=== PATIENT | male | born 1970 | race Caucasian/White ===

== ENCOUNTER 2020-08-18 08:34 | Outpatient (REF) | payer BC, SELFPAY ==
[2020-08-18 11:57] LABS: Alanine Aminotransferase 27 U/L (0-40); Anion Gap 13 (12-20); Aspartate Amino Transferase 22 U/L (5-37); Blood Urea Nitrogen 17 mg/dL (9-16); Calcium 9.3 mg/dL (8.4-10.2); Carbon Dioxide 29 mmol/L (22-29); Chloride 103 mmol/L (96-108); Cholesterol 221 mg/dL; Estimated Glomerular Filt Rate > 60; Glucose Fasting 99 mg/dL (60-99); HDL Cholesterol 46 mg/dL; LDL Cholesterol Calculated 140 mg/dl; Potassium 4.2 mmol/L (3.3-5.1); Sodium 141 mmol/L (135-145); Triglycerides 175 mg/dL
[2020-08-18 12:06] LABS: TSH reflex Free T4 1.11 uIU/mL (0.32-4.0)
== END 2020-08-18 08:35 | disposition home or self-care (01) ==
LOC: HO.HMGCLDS 08:34
PROVIDERS: PCP Internal Medicine; Visit Provider Internal Medicine
DX: Z00.01 Encounter for general adult medical examination with abnormal findings (principal); I10 Essential (primary) hypertension
CPT/HCPCS: 36415; 80048; 80061; 84443; 84450; 84460

== ENCOUNTER → 2020-09-15 10:42 | Outpatient (BNVA) | payer BC, SELFPAY | PROVIDERS: PCP Internal Medicine; Referring Provider Internal Medicine; Visit Provider Internal Medicine | DX: I10 Essential (primary) hypertension (principal); R94.31 Abnormal electrocardiogram [ECG] [EKG] | CPT/HCPCS: 93005 ==

== ENCOUNTER → 2020-09-29 10:06 | Outpatient (REF) | payer BC, SELFPAY ==
--- NOTE | 2020-09-29 | CA_ITS ---
Acquisition Time: 2020-09-29 10:20:27 Total Exercise Time: 00:09:00 Test Indications: Palpitations Medications: AMLODIPINE METOPROLOL Protocol: MIGUEL Max HR: 153 BPM 88% of Pred: 173 BPM Max BP: 220/100 mmHG Max Work Load: 10.1 METS Exercise stress test with exercise 9 min of Miguel protocol, without anginal symptoms, without arrythmia, with BP 146/86 at baseline and elevated to 220/100 with exercise, with nondiagnostic EKG for ischemia due to baseline abnormality. Nuclear images pending. Test reviewed with Dr Snowden. Referred By: Adryan Fuentes Overread By: LUBNA LOCK
--- NOTE | ~2020-09-29 | NM_ITS ---
Exercise Myocardial perfusion study Indication: Abnormal EKG to evaluate for myocardial ischemia Technique: The patient was brought in for an exercise perfusion study on 09/29/2020. Patient performed exercise as per Ibrahima protocol and was injected 30 mCi of sestamibi was given intravenously one target HR was achieved. Images were obtained using the SPECT gamma camera interlaced with the gating device. Images were obtained in supine position. Resting perfusion study was performed on 09/30/2020. Patient was administered 30 mCi of sestamibi intravenously at rest. Images were then obtained in supine position. Images obtained with and without CT attenuation. Total DLP 90 mGy-cm. Images were processed with the software and compared side to side in short axis, horizontal long axis and vertical long axis views. Findings: The stress perfusion study showed non attenuated images show mildly to moderately reduced uptake in the basal inferior wall of the LV myocardium. Remainder of the LV myocardium is normally perfused. Attenuation corrected images show mildly reduced uptake in the apex of the LV myocardium.. The gated study shows normal LV systolic function with calculated LVEF of 69%. LV cavity is normal in size. The gated study shows normal systolic wall thickening and contraction of all segments. There is no transient ischemic dilation. Resting study shows no change in perfusion pattern compared to stress perfusion study. Gating at rest reveals normal systolic wall motion with ejection fraction at 61%. The findings are consistent with normal myocardial perfusion. NM/NM cardiolite stress test Impression: 1. Normal myocardial perfusion 2. Gated LVEF is 69% 3. Transient ischemic dilatation not present Stress EKG is nondiagnostic for ischemia
--- NOTE | 2020-09-29 10:30 | ECG_ITS ---
Hook-up date: 2020-09-29 11:17:00 Duration: 24:23:00 Test Indications: Abnormal EKG Medications: [id number] QRS complexes 1 Ventricular ectopics which represent <1 % of total QRS comp. 15 Supraventricular ectopics which represent <1 % of total QRS comp. * Paced QRS complexs which represent % of total QRS comp. VENTRICULAR ECTOPY 1 Isolated 0 Bigeminal Cycles 0 Couplets 0 Runs 0 Beats in Runs * Beats LONGEST at * BPM at :: -- * Beats FASTEST at * BPM at :: -- SUPRAVENTRICULAR ECTOPY 15 Isolated 0 Couplets 0 Runs 0 Beats in Runs * Beats LONGEST at * BPM at :: -- * Beats FASTEST at * BPM at :: -- HEART RATES 55 MIN at 04:10:58 2020-09-30 82 AVG 124 MAX at 13:35:29 2020-09-29 LONGEST RR 1.1360 secs at 04:11:23 2020-09-30 S-T LEVELS Channel 1 - 128 mm at 11:17:00 2020-09-29 - 128 mm at 11:17:00 2020-09-29 Channel 2 - 128 mm at 11:17:00 2020-09-29 - 128 mm at 11:17:00 2020-09-29 Channel 3 - 128 mm at 03:03:61 -- - 128 mm at 03:03:61 Underlying rhythm is sinus with an average rate of 82/min; Range 55-124/min; Very rare PACs; No significant arrhythmias; Patient did not return diary Referred By: Artie Obrien Overread By: ARTIE OBRIEN
== END ==
LOC: HO.CARD 10:06
PROVIDERS: PCP Internal Medicine; Visit Provider Internal Medicine
DX: R94.31 Abnormal electrocardiogram [ECG] [EKG] (principal); I10 Essential (primary) hypertension
CPT/HCPCS: 78452; 93016; 93017; 93018; 93225; 93226; A9500

== ENCOUNTER → 2020-11-08 08:37 | Outpatient (REF) | payer BC, SELFPAY ==
--- NOTE | 2020-11-08 08:41 | CA_ITS ---
Transthoracic Echocardiogram Patient (Last, First, Middle): Uli Valencia, Gender: Male Date of : 1970 Age: 50 Procedure Date: 11/08/2020 Procedure Type: Transthoracic Echocardiogram Location: OP Height: 182.88 cm Weight: 81.65 kg BSA: 2.04 m2 Heart Rate: bpm BP: 140 / 90 mmHg Correspondent: DSJai Referring MD: Adryan Fuentes MD Symptoms: I10 - Essential (primary) hypertension Study Quality: Good ECG Rhythm: Sinus Conclusions: - The left ventricular systolic function is normal. The visually estimated ejection fraction is between 65-70%. - There is mildly increased left ventricular wall thickness. - No obvious valvular pathology seen on this study. - There is mild dilatation of the ascending aorta measuring 3.60 cm. Findings Left Ventricle Normal left ventricular cavity size. There is mildly increased left ventricular wall thickness. The left ventricular systolic function is normal. The visually estimated ejection fraction is between 65-70%. There is no evidence of regional wall motion abnormalities. Diastolic function is normal for age. Right Ventricle Normal right ventricular cavity size and systolic function. Atria Both atria are normal in size. Aortic Valve There is a normal trileaflet aortic valve. There is no aortic valve stenosis. There is no aortic valve regurgitation. Mitral Valve The mitral valve appears normal. There is trace mitral valve regurgitation. There is no mitral valve stenosis. Pulmonic Valve The pulmonic valve was not well visualized. Tricuspid Valve Normal tricuspid valve structure. There is no tricuspid valve regurgitation. The pulmonary artery systolic pressure is normal. Great Vessels There is mild dilatation of the ascending aorta measuring 3.60 cm. Venous The inferior vena cava is normal in size and collapses greater than 50% with inspiration. Pericardium/Pleural There is no evidence of pericardial effusion. Prior Study Comparison Changes noted compared to prior study dated: 08/23/2016. Increase in ascending aortic size. Recommendations, Care & Conclusions No obvious valvular pathology seen on this study. Measurements 2D Linear Measurements IVSd: 1.09 0.6-0.9/0.6-1.0 cm LVIDd: 4.53 3.9-5.3/4.2-5.9 cm LVIDd Index: 2.22 2.4-3.2/2.2-3.1 cm/m2 LVIDs: 3.20 2.0-3.6 cm LVPWd: 1.18 0.7-1.1 cm Ao Root: 3.20 2.1-3.5 cm LA Diam: 3.50 2.7-3.8/3.0-4.0 cm LAIDs Index: 1.72 1.5-2.3 cm/m2 LV Mass: 230.33 67-162/88-224 g LV Mass Index: 112.91 43-95/49-115 g/m2 LVOT Diam: 2.30 3.0+(-)1.3 cm 2D Systolic Function EF 4C: 73.30 >55% EF 2C: 63.20 >55% EF BiP: 69.40 >55% Mitral Valve MV Pk E: 0.58 MV PK A: 0.42 MV Decel Time: 152.00 E/A: 1.40 E'Lateral: 10.90 E'Medial: 7.40 E/E' Med: 7.80 E/E' Lat: 5.30 PHT: 44.00 MVA PHT: 5.00 Decel [place]: 3.79 Aortic Valve AoV Pk Scar: 1.21 AoV Pk Grad: 6.00 LVOT LVOT Pk Scar: 1.21 LVOT Mn Scar: 0.82 LVOT VTI: 0.24 LVOT Pk Grad: 6.00 LVOT Mn Grad: 3.00 LVOT Diam: 2.30 LVOT Area: 4.15 Diastolic Function MV Pk E: 0.58 MV Pk A: 0.42 E/A: 1.40 E'Medial: 7.40 E/E' Med: 7.80 E' Laterial: 10.90 E/E' Lat: 5.30 Tricuspid Valve RA Press: 3.00 Great Vessels Aorta Ao Root-2D: 3.20 2.0-3.7 cm Ao Asc: 3.60 2.1-3.4 cm Updated in Other Vendor System with Status of Final Adryan Fuentes MD electronically signed on 11/08/2020 10:41:54 AM with status of Final
== END ==
LOC: HO.CARD 08:37
PROVIDERS: Visit Provider Internal Medicine
DX: I10 Essential (primary) hypertension (principal)
CPT/HCPCS: 93306

== ENCOUNTER → 2020-12-07 09:28 | Outpatient (BNVA) | payer BC, SELFPAY | PROVIDERS: PCP Internal Medicine; Referring Provider Internal Medicine; Visit Provider Internal Medicine ==

== ENCOUNTER 2021-04-13 09:29 | Outpatient (REF) | payer BC, SELFPAY ==
[2021-04-13 10:53] LABS: Anion Gap 13 (12-20); Blood Urea Nitrogen 17 mg/dL (9-16); Calcium 9.5 mg/dL (8.4-10.2); Carbon Dioxide 26 mmol/L (22-29); Chloride 102 mmol/L (96-108); Estimated Glomerular Filt Rate > 60; Glucose Random 122 mg/dL (60-115); Potassium 4.3 mmol/L (3.3-5.1); Sodium 137 mmol/L (135-145)
[2021-04-13 11:39] LABS: Erythrocyte Sedimentation Rate 2 MM/HR (0-15)
[2021-04-13 11:40] LABS: Vitamin B12 338 pg/mL (200-900)
[2021-04-14 07:34] LABS: Syphilis Screen Nonreactive (Nonreactive)
[2021-04-15 04:57] LABS: Lyme Abs Screen <0.90 index
[2021-04-17 11:12] LABS: Anti Nuclear Antibody Screen NEGATIVE (NEGATIVE)
== END 2021-04-13 09:30 | disposition home or self-care (01) ==
LOC: HO.LAB 09:29
PROVIDERS: PCP Internal Medicine; Visit Provider Psychiatry & Neurology Neurology
DX: G93.40 Encephalopathy, unspecified (principal)
CPT/HCPCS: 36415; 80048; 82607; 85652; 86038; 86039; 86617; 86618; 86780

== ENCOUNTER 2021-04-18 08:05 | Outpatient (REF) | payer BC, SELFPAY ==
--- NOTE | ~2021-04-18 | MR_ITS ---
MR BRAIN WITHOUT AND WITH CONTRAST CLINICAL INFORMATION: Encephalopathy. Diplopia. COMPARISON: Brain MRI 11/28/2006. TECHNIQUE: Multiplanar, multisequence MRI of the brain was obtained before and after the intravenous administration of 8.5 mL Gadavist. FINDINGS: There is no pathologic intracranial enhancement. Mild nonspecific T2 signal changes within the supratentorial white matter. There is no hydrocephalus, extra-axial surface collection, or herniation. The major flow voids at the skull base are preserved. There is no acute infarct on diffusion-weighted imaging. There is no intracranial hemorrhage on the gradient recalled echo acquisition. The midline structures are normal. The cerebellar tonsils are normally positioned. The cerebellum and brainstem are normal. The craniocervical junction is normal. Osseous marrow signal intensity is homogenous. The visualized soft tissues are unremarkable. Moderate opacification of the left maxillary sinus, small retention cyst within the right maxillary sinus, moderate opacification of the ethmoid air cells bilaterally, and moderate mucosal thickening within the left frontal sinus. MR/MR head/brain wo/w con IMPRESSION: - No acute intracranial findings. No enhancing lesions. - Mild nonspecific T2 signal changes within the supratentorial white matter. - Moderate sinus mucosal disease as described.
== END 2021-04-18 08:06 | disposition home or self-care (01) ==
LOC: HO.MRI 08:05
PROVIDERS: PCP Internal Medicine; Visit Provider Psychiatry & Neurology Neurology
DX: G93.40 Encephalopathy, unspecified (principal); H53.2 Diplopia
CPT/HCPCS: 70553; A9585

== ENCOUNTER → 2021-06-12 09:32 | Outpatient (BNVA) | payer BC, SELFPAY | PROVIDERS: PCP Internal Medicine; Referring Provider Internal Medicine; Visit Provider Internal Medicine ==

== ENCOUNTER 2021-12-18 10:52 | Outpatient (REF) | payer BC, SELFPAY ==
--- NOTE | ~2021-12-18 | XR_ITS ---
EXAMINATION: XR FOOT, RIGHT CLINICAL INFORMATION: Right foot pain. COMPARISON: None. TECHNIQUE: AP, lateral, and oblique views of the right foot. FINDINGS: No acute fracture or dislocation. No joint space narrowing or marginal osteophytes. No osseous erosion. Plantar calcaneal spur. XR/XR foot RT min 3V IMPRESSION: No acute osseous abnormality. Small plantar calcaneal spur.
== END 2021-12-18 10:53 | disposition home or self-care (01) ==
LOC: HO.HMGCX 10:52
PROVIDERS: PCP Internal Medicine; Visit Provider Nurse Practitioner Family
DX: S99.921A Unspecified injury of right foot, initial encounter (principal)
CPT/HCPCS: 73630

== ENCOUNTER 2022-12-14 10:12 | Outpatient (AMB) | payer BC, SELFPAY ==
--- NOTE | 2022-12-14 10:25 | A.OFFVIS_ITS ---
Intake Vital Signs 12/14/22 10:26 12/14/22 10:26 BP 150/90 H Blood Pressure Location Lt brachial Position Sitting Pulse 83 83 Pulse Source Pulse Oximeter Pulse Oximeter Pulse Oximetry (%) 98 98 Oxygen Delivery Method Room Air Room Air Comment caffeine Intake Visit Reasons: MAT Intake Intake Note: the patient presents for a mat intake Cardiac Rehabilitation Program Director Required: No Allergies No Known Allergies [No Known Allergies*] Allergy (Verified 12/14/22 10:26) Medication List - Last Reconciled 12/14/22 by Roxann Vasquez CNP Do you need a note to return to daycare/school/sports/work: No HPI MAT Intake HPI Details Patient presents for inatake and evaluation of alcohol use Drinking seldieterers daily brother passed from alcohol and other substance use Started becoming an issue 5 years ago work becoming increasingly stressful Has started to decreased over the last 2 months 3 seltzers yesterday 2 days before that was his last drink. 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 Previously on medications [facility] Medical History Encounter for general adult medical examination with abnormal findings Seizure disorder Uncontrolled hypertension Surgical History History of appendectomy Family History Father CAD (coronary artery disease) Mother HTN (hypertension) Social History Housing: House Alcohol intake: current Alcohol intake frequency: a few times a week Patient Tobacco Use Status: Never used Tobacco e-Cigarette/Vaping Use: Never Used service: No Current occupational status: employed Cognitive needs: No Hearing needs: No Vision needs: No Review of Systems Const Reports as per HPI and Reports no additional complaints Physical Exam Vital Signs: Last Vital Signs Pulse 83 12/14/22 10:26 BP 150/90 H 12/14/22 10:26 Pulse Ox 98 12/14/22 10:26 Oxygen Delivery Method Room Air 12/14/22 10:26 Const General: cooperative, healthy appearing, no acute distress and anxious Psych Appearance: well kempt Speech and movement: Pressured speech present Affect: Anxious affect present Thought process: Normal thought process present and Circumstantial thought process present Insight: Good insight present (Psych) Assessment & Plan Assessment & Plan (1) Alcohol use disorder, moderate, dependence: Code(s): F10.20 - Alcohol dependence, uncomplicated Plan: * Agreeable to naltrexone 50 mg daily. Discussed medication, dosing, side effects and goals of treatment * Agreeable to sertraline trial to address anxiety and irritability * Propanolol 10 mg b.i.d. for anxiety * Follow-up 4 weeks * Risk reduction discussion Orders: Orders Comprehensive Met. Panel 12/14/22 F10.20 - Alcohol dependence, uncomplicated Medications: New sertraline one tab daily for two weeks then increase to 2 tabs daily 25 mg PO DAILY 45 tabs 0RF naltrexone take 1/2 tab daily for 3 days then increase to one tab daily 50 mg PO DAILY 30 tabs 1RF propranolol 10 mg PO BID 60 tabs 0RF Coding Level of Care Code New Pt Level 4 (85584) Diagnoses Alcohol use disorder, moderate, dependence F10.20
[2022-12-14 10:26] VITALS: BP 150/90; PULSE 83; O2SAT 98
== END 2022-12-14 11:48 | disposition home or self-care (01) ==
LOC: HO.HCC 10:12
PROVIDERS: PCP Internal Medicine; Visit Provider Nurse Practitioner Psychiatric/Mental Health
DX: F10.20 Alcohol dependence, uncomplicated (principal)
CPT/HCPCS: 99204

== ENCOUNTER → 2022-12-14 10:12 | Outpatient (BNVA) | payer BC, SELFPAY | PROVIDERS: PCP Internal Medicine; Visit Provider Nurse Practitioner Psychiatric/Mental Health ==

== ENCOUNTER 2023-11-21 11:40 | Outpatient (AMB) | payer BC, SELFPAY ==
--- NOTE | 2023-11-21 11:48 | MHC.OFFWIV ---
Intake Vital Signs 11/21/23 11:50 Height 6 ft Weight 189 lb BMI 25.6 BP 182/104 H Blood Pressure Location Rt brachial Position Sitting Pulse 79 Pulse Source Pulse Oximeter Temp 98.2 F Temp Source Oral Pulse Oximetry (%) 98 Oxygen Delivery Method Room Air Intake Visit Reasons: Neck rash/painful burning itchy Intake Note: pt here c/o rash on neck Patient Tobacco Use Status: Never used Tobacco Allergies No Known Allergies [No Known Allergies*] Allergy (Verified 11/21/23 11:49) Do you need a note to return to daycare/school/sports/work: No HPI HPI Comments History of Present Illness Details Patient is a 53-year-old male complaining of an itchy rash on his neck for about 7-8 days that seems to be getting larger. He has been trying oatmeal baths and some creams but Eucerin just made it more. He states that he has fluid filled bubbles that are bursting and it is weeping fluid. He states that he thinks this happens every year for the past 4-5 years. He states he has had many different diagnoses for this rash over the years including shingles and eczema that he has never seen a buhr mill operator for it. Also, patient's blood pressure is 182/104, he states he does have hypertension that he takes propanolol daily and he did take it today. He denies any chest pain, headache, dizziness or feeling like he is going to pass out. He states he feels absolutely fine except for the itching on his neck. [facility] Medical History Encounter for general adult medical examination with abnormal findings Seizure disorder Uncontrolled hypertension Surgical History History of appendectomy Family History Father CAD (coronary artery disease) Mother HTN (hypertension) Social History Housing: House Alcohol intake: current Alcohol intake frequency: a few times a week Patient Tobacco Use Status: Never used Tobacco e-Cigarette/Vaping Use: Never Used service: No Current occupational status: employed Cognitive needs: No Hearing needs: No Vision needs: No Review of Systems Const All systems reviewed & are unremarkable except as noted in HPI and below Physical Exam Vital Signs: Last Vital Signs Temp 98.2 F 11/21/23 11:50 Pulse 79 11/21/23 11:50 BP 182/104 H 11/21/23 11:50 Pulse Ox 98 11/21/23 11:50 Oxygen Delivery Method Room Air 11/21/23 11:50 BMI result Body Mass Index 25.6 Const General: cooperative, healthy appearing, comfortable, no acute distress and well developed Orientation/consciousness: patient oriented x3 Limitations: no limitations HEENT Head: Yes normal to inspection Eyes General: appearance normal, both eyes and all related structures Neck Neck: Yes normal visual inspection and Yes full ROM Resp Effort & Inspection: normal respiratory effort and able to speak in complete sentences Skin Other: Rashes: rashes noted Right side to posterior neck to left side color (Crusted lesions speckled throughout) clear and with an erythematous base and surface indurated, with crusting and with an erythematous base; nontender Neuro General: patient oriented x3, no focal motor deficits and CN's II-XI intact bilaterally Extrem General: Yes normal to inspection Assessment & Plan Assessment & Plan (1) Allergic dermatitis: Code(s): L23.9 - Allergic contact dermatitis, unspecified cause Plan: Allergic dermatitis secondary to poison nimisha versus psoriasis, discussed with patient that I will send referral to Dermatology and a prescription for a prednisone taper. If the prednisone taper does not work, he could see the buhr mill operator and if it does work well, he should cancel the dermatology appointment. (2) Hypertensive urgency: Code(s): I16.0 - Hypertensive urgency Plan: Rechecked patient's blood pressure, systolic was 204, educated patient that he is at risk for a stroke and he needs to go to the emergency department so they can lower his blood pressure slowly and monitor him. He likely needs a secondary agent beyond the propranolol. Patient states he will go home and have his drive him to the [facility] emergency department. Called [facility] ED with expect Plan See above Orders: Referrals Dermatology Referral L23.9 - Allergic contact dermatitis, unspecified cause Medications: New prednisone On days 1&2, take 3 tablets with breakfast. On days 3&4 take 2 tablets with breakfast, on days 5&6 take 1.5 tablets with breakfast, on days 7&8 take 1 tablet with breakfast, on days 9&10 take 0.5 tablet with breakfast. 20 mg PO DAILY 16 tabs 0RF Coding Level of Care Code Est Pt Level 5 (94249) Diagnoses Allergic dermatitis L23.9 Hypertensive urgency I16.0
[2023-11-21 11:50] VITALS: BP 182/104; PULSE 79; TEMP 36.8; O2SAT 98; BMI 25.6
== END 2023-11-21 12:32 | disposition home or self-care (01) ==
PROVIDERS: PCP Internal Medicine; Visit Provider Physician Assistant
DX: I16.0 Hypertensive urgency (principal); L23.9 Allergic contact dermatitis, unspecified cause
CPT/HCPCS: 99215